=== PATIENT | female | born 1980 | race Caucasian/White ===

== ENCOUNTER 2018-04-08 10:09 | Emergency (ER) | payer MEDICAID ==
[2018-04-08] MEDS ORDERED: Albuterol 0.083% Inhal Sol (2.5 mg/3 mL) UD IH STA ×3 (10:18→12:03)
[2018-04-08] MEDS ORDERED: Magnesium Sulfate 1 gm in D5W 1 GM/100 ML BAG IV ONE (10:18)
[2018-04-08] MEDS ORDERED: Albuterol-Ipratrop 3 mg / 0.5 (3 ml) UD INH STA (10:19)
[2018-04-08] MEDS ORDERED: Albuterol-Ipratrop 3 mg / 0.5 (3 ml) UD ONE (10:20)
[2018-04-08] MEDS ORDERED: Magnesium Sulfate 1 gm in D5W 2 GM/200 ML BAG IVPB ONE (10:30)
[2018-04-08 10:31] LABS: BASO # 0.1 K/uL (0.0-0.2); BASO % 0.9 % (0.0-2.0); EOS # 1.3 K/uL (0.0-0.7); EOS % 9.5 % (0.0-4.0); LYMPH % 21.8 % (20.0-40.0); MEAN CELL VOLUME 72.2 fL (81.0-99.0); MEAN CORPUSCULAR HEMOGLOBIN 23.2 pg (27.0-31.0); MEAN CORPUSCULAR HGB CONC 32.1 g/dL (33.0-37.0); MEAN PLATELET VOLUME 7.7 fL (7.2-11.7); MONO % 7.5 % (0.0-10.0); NEUT # 8.3 K/uL (1.8-7.0); NEUT % 60.3 % (50.0-75.0); NRBC % 0.1 % (0.0-2.0); RBC 5.15 Mil/uL (3.80-5.20); RED CELL DISTRIBUTION WIDTH 16.8 % (11.5-14.5); WHITE BLOOD COUNT 13.8 K/uL (4.8-10.8)
--- NOTE | 2018-04-08 10:44 | C.PDOC ---
History Of Present Illness Patient presents to ED in respiratory distress, unable to speak. PMHx of asthma. History limited due to clinical condition. Time Seen by Provider: 04/08/18 10:16 Chief Complaint (Nursing): Respiratory Distress History Per: Patient History/Exam Limitations: clinical condition Onset/Duration Of Symptoms: Hrs Current Symptoms Are (Timing): Still Present Past Medical History Reviewed: Historical Data, Nursing Documentation, Vital Signs Vital Signs: Last Vital Signs Temp 97.9 F 04/08/18 10:16 Pulse 122 H 04/08/18 10:16 Resp 28 H 04/08/18 10:16 BP 171/101 H 04/08/18 10:16 Pulse Ox 93 L 04/08/18 10:16 - Medical History PMH: Asthma Family History: States: No Known Family Hx - Social History Hx Alcohol Use: Yes Hx Substance Use: No - Immunization History Hx Tetanus Toxoid Vaccination: No Hx Influenza Vaccination: No Hx Pneumococcal Vaccination: No Review Of Systems Review Of Systems: ROS cannot be obtained secondary to pt's inabilty to answer questions. Physical Exam - Physical Exam Appears: In Acute Distress (in moderate respiratory distress, grunting) Skin: Normal Color, Warm, Dry Oral Mucosa: Moist Cardiovascular: Rhythm Regular (tachycardic ) Respiratory: Accessory Muscle Use (moderate), No Rales, No Rhonchi, Wheezing (diffuse expiratory wheezing) Extremity: Normal ROM, No Pedal Edema, No Calf Tenderness ED Course And Treatment - Laboratory Results Result Diagrams: 04/08/18 10:24 04/08/18 10:24 O2 Sat by Pulse Oximetry: 93 (ra) Pulse Ox Interpretation: Abnormal Progress Note: Blood work, CXR, EKG ordered and reviewed. Patient given IV solumedrol, SC Terbutaline, albuterol and duoneb treatments, Magnesium sulfate 2G. Disposition Counseled Patient/Family Regarding: Need For Followup - Disposition Disposition: HOME/ ROUTINE Disposition Time: 13:25 Condition: STABLE Prescriptions: Albuterol 0.5% [Albuterol 0.5% Inhal Veronica (2.5 mg/0.5 ml) UD] 2.5 mg IH Q6 PRN #1 bottle PRN Reason: Wheezing Albuterol HFA [Ventolin HFA 90 mcg/actuation (8 g)] 0.09 mg IH Q4 PRN #1 puff PRN Reason: Wheezing Mask, Face [Nebulizer Aerosol Mask Adult] 1 dev XX PRN PRN #1 dev PRN Reason: sob Nebulizer and Compressor [[place] Nebulizer] 1 each MC PRN PRN #1 each NS PRN Reason: sob predniSONE [predniSONE Tab] 40 mg PO DAILY #8 tab Instructions: Asthma, Adult (DC) Forms: [employer] (Citizen Of [place]) Print Language: MONTSERRAT[place] - POA Present On Arrival: None - Clinical Impression Clinical Impression: Exacerbation of asthma
[2018-04-08 10:54] LABS: ALB/GLOB RATIO 1.1 (1.0-2.1); ALBUMIN 4.5 g/dL (3.5-5.0); ALT/SGPT 30 U/L (9-52); AST/SGOT 44 U/L (14-36); BLOOD UREA NITROGEN 13 mg/dL (7-17); CALCIUM 9.4 mg/dl (8.6-10.4); GFR NON-AFRICAN AMERICAN > 60
--- NOTE | 2018-04-08 10:56 | RAD ---
HISTORY: SOB COMPARISON: None TECHNIQUE: Chest one view . FINDINGS: LUNGS: Mild right basilar atelectasis. PLEURA: No pleural effusion is identified. CARDIOVASCULAR: Heart size is within normal limits. No atherosclerotic calcification present. OSSEOUS STRUCTURES: No acute fracture identified. VISUALIZED UPPER ABDOMEN: Unremarkable. OTHER FINDINGS: None. IMPRESSION: Mild right basilar atelectasis.
[2018-04-08 10:58] LABS: INR 1.1; PROTHROMBIN TIME 11.9 SECONDS (9.7-12.2)
[2018-04-08 11:09] LABS: B-TYPE NATRIURETIC PEPTIDE 55.8 pg/mL (0-450); CK-MB 3.16 ng/mL (0.0-3.38)
[2018-04-08] MEDS ORDERED: Albuterol 0.083% Inhal Sol (2.5 mg/3 mL) UD ONE (12:40)
[2018-04-08 13:28] VITALS: O2SAT 93
[2018-04-08 13:29] VITALS: BP 108/58; PULSE 112; RESP 19; TEMP 98.5
--- NOTE | 2018-04-11 00:02 | CARD ---
APPROVED REPORT Date of service: 04/08/2018 EKG Measurement Heart [id number] [id number] <Conclusion> Sinus tachycardia Nonspecific ST abnormality Prolonged QT Abnormal ECG
== END 2018-04-08 13:32 | disposition home or self-care (01) ==
LOC: C.ER 10:09
DX: J45.901 Unspecified asthma with (acute) exacerbation (principal)
CPT/HCPCS: 71045; 80053; 82550; 82553; 83880; 84484; 84702; 85025; 85610; 85730; 93005; 94640; 96365; 96366; 96372; 96375; 99284; J2930; J3105; J3475